=== PATIENT | male | born 1960 | race Caucasian/White ===

== ENCOUNTER 2021-12-19 17:57 | Inpatient (IN) | payer MEDICARE ==
[2021-12-19] MEDS ORDERED: SODIUM CHLORIDE 0.9% 1,000 ML IV STA ×5 (18:10→23:00)
--- NOTE | 2021-12-19 18:13 | ED ---
General Adult HPI - General Stated complaint: Altered mental status Time Seen by Provider: 12/19/21 18:00 - History of Present Illness Initial comments: 61-year-old male with a history of liver transplant 19 years ago at [facility] multiple other medical issues who also has been drinking but quit 2 weeks ago who presents today with complaints of weakness he was unable to get up and ambulate for last couple days due to weakness he also states he had gout which was acting up with pain in his feet. He denies any overt fevers chills or sweats he states he had increase oral intake of fluids but decreased urine output per paramedics the urine bedside and it urine all was very dark. He was also noted to be jaundiced's unclear how long this is been going on. He denies any fevers chills or sweats no nausea vomiting at this time no other complaints at this time - Related Data Home Medications Medication Instructions Recorded Confirmed Allopurinol [Zyloprim] 300 mg PO HS 12/19/21 12/19/21 Atorvastatin Calcium [Lipitor] 10 mg PO DAILY 12/19/21 12/19/21 HYDROcodone/APAP 10-325MG [[place] 1 tab PO QID 12/19/21 12/19/21 10-325] Metoprolol Tartrate [Lopressor] 100 mg PO BID 12/19/21 12/19/21 Omeprazole 40 mg PO DAILY 12/19/21 12/19/21 QUEtiapine [SEROquel] 200 mg PO HS 12/19/21 12/19/21 Tacrolimus [Prograf] 3 mg PO BID 12/19/21 12/19/21 Allergies Allergy/AdvReac Type Severity Reaction Status Date / Time No Known Allergies Allergy Verified 12/19/21 20:48 Review of Systems ROS Statement: Those systems with pertinent positive or pertinent negative responses have been documented in the HPI. ROS Other: All systems not noted in ROS Statement are negative. General Exam - General Exam Comments Initial Comments: Is a well-developed well-nourished awake alert oriented 3 male Limitations: physical limitation General appearance: alert, in no apparent distress Head exam: Present: atraumatic, normocephalic, normal inspection Eye exam: Present: other (Conjunctival icterus) ENT exam: Present: mucous membranes dry Neck exam: Present: normal inspection, full ROM, other. Absent: tenderness, meningismus, lymphadenopathy Respiratory exam: Present: decreased breath sounds (No stridor JVD or bruits) Cardiovascular Exam: Present: regular rate, normal rhythm, normal heart sounds. Absent: systolic murmur, diastolic murmur, rubs, gallop, clicks GI/Abdominal exam: Present: soft, distended, normal bowel sounds. Absent: tenderness, guarding, rebound, rigid Extremities exam: Present: full ROM, normal capillary refill, other (Mild tenderness over the feet to palpation over the joints some bruising seen over the right medial first MTP joint). Absent: tenderness, pedal edema, joint swelling, calf tenderness Back exam: Present: normal inspection, full ROM Neurological exam: Present: alert, oriented X3, CN II-XII intact Psychiatric exam: Present: normal affect, normal mood Skin exam: Present: warm, dry, intact, other (Jaundice). Absent: rash Course Vital Signs 12/19/21 12/19/21 18:00 19:40 Temperature 97.7 F Pulse Rate 82 76 Respiratory 22 18 Rate Blood Pressure 122/72 138/73 O2 Sat by Pulse 95 98 Oximetry - Reevaluation(s) Reevaluation #1: 12/19/21 20:36 Patient reevaluation feeling somewhat better after some IV fluids. I did discuss all the findings with family he will require transfer to a higher level of care for hepatorenal failure specimen light of the liver transplant he does not want to go to [facility] in [place] is his choice. Reevaluation #2: 12/19/21 20:37 I did discuss the case with the transfer team at [facility] Dr. Simpson. Also discussed the case with the ICU fellow if the patient does not require an insulin drip and if the gap to be improved to around 12 patient can be admitted to the floor directly. COVID-19 is pending at this time. Reevaluation #3: 12/19/21 20:53 Reevaluation patient still is awake alert somewhat anxious. Discussed with the transfer team at [facility] they would like to have possible acute the patient and the ICU has not required insulin drip patient will receive a liter fluid and hemorrhage is of insulin with a redraw. It was like the anion gap to be around 12 of possible down from 17. I did discuss this with the patient I will discuss this with Dr. Casillas at her shift change EKG Findings - EKG Results: EKG: interpreted by ERMRosie, sinus rhythm (Sinus rhythm a 78. Interval 156 QRS duration 106 DT says QTC 440/473 prolonged QT interval nonspecific ST configuration) Medical Decision Making - Lab Data Result diagrams: 12/19/21 18:20 12/19/21 18:20 Lab Results 12/19/21 12/19/21 12/19/21 Range/Units 18:10 18:20 18:20 WBC 7.8 (3.8-10.6) k/uL RBC 3.29 L (4.30-5.90) m/uL Hgb 11.3 L (13.0-17.5) gm/dL Hct 34.8 L (39.0-53.0) % MCV 105.8 H (80.0-100.0) fL MCH 34.3 (25.0-35.0) pg MCHC 32.4 (31.0-37.0) g/dL RDW 14.6 (11.5-15.5) % Plt Count 209 (150-450) k/uL MPV 11.2 Neutrophils % 84 % Lymphocytes % 8 % Monocytes % 5 % Eosinophils % 1 % Basophils % 0 % Neutrophils # 6.6 (1.3-7.7) k/uL Lymphocytes # 0.7 L (1.0-4.8) k/uL Monocytes # 0.4 (0-1.0) k/uL Eosinophils # 0.1 (0-0.7) k/uL Basophils # 0.0 (0-0.2) k/uL Hypochromasia Slight Macrocytosis Moderate PT 13.0 H (9.0-12.0) sec INR 1.2 H (<1.2) APTT 27.2 (22.0-30.0) sec Sodium (137-145) mmol/L Potassium (3.5-5.1) mmol/L Chloride (98-107) mmol/L Carbon Dioxide (22-30) mmol/L Anion Gap mmol/L BUN (9-20) mg/dL Creatinine (0.66-1.25) mg/dL Est GFR (CKD-EPI)AfAm (>60 ml/min/1.73 sqM) Est GFR (CKD-EPI)NonAf (>60 ml/min/1.73 sqM) Glucose (74-99) mg/dL POC Glucose (mg/dL) >600 H (75-99) mg/dL POC Glu Laboratory Tester Alejo Rivera Plasma Lactic Acid Eriberto (0.7-2.0) mmol/L Calcium (8.4-10.2) mg/dL Magnesium (1.6-2.3) mg/dL Total Bilirubin (0.2-1.3) mg/dL AST (17-59) U/L ALT (4-49) U/L Alkaline Phosphatase (38-126) U/L Ammonia (<30) umol/L Creatine Kinase (55-170) U/L Troponin I (0.000-0.034) ng/mL Total Protein (6.3-8.2) g/dL Albumin (3.5-5.0) g/dL Amylase (30-110) U/L Lipase (23-300) U/L Acetone, Qual (Negative) Coronavirus (PCR) (Not Detectd) 12/19/21 12/19/21 12/19/21 Range/Units 18:20 18:20 18:20 WBC (3.8-10.6) k/uL RBC (4.30-5.90) m/uL Hgb (13.0-17.5) gm/dL Hct (39.0-53.0) % MCV (80.0-100.0) fL MCH (25.0-35.0) pg MCHC (31.0-37.0) g/dL RDW (11.5-15.5) % Plt Count (150-450) k/uL MPV Neutrophils % % Lymphocytes % % Monocytes % % Eosinophils % % Basophils % % Neutrophils # (1.3-7.7) k/uL Lymphocytes # (1.0-4.8) k/uL Monocytes # (0-1.0) k/uL Eosinophils # (0-0.7) k/uL Basophils # (0-0.2) k/uL Hypochromasia Macrocytosis PT (9.0-12.0) sec INR (<1.2) APTT (22.0-30.0) sec Sodium 120 L (137-145) mmol/L Potassium 4.9 (3.5-5.1) mmol/L Chloride 85 L (98-107) mmol/L Carbon Dioxide 18 L (22-30) mmol/L Anion Gap 17 mmol/L BUN 64 H (9-20) mg/dL Creatinine 3.33 H (0.66-1.25) mg/dL Est GFR (CKD-EPI)AfAm 22 (>60 ml/min/1.73 sqM) Est GFR (CKD-EPI)NonAf 19 (>60 ml/min/1.73 sqM) Glucose 693 H* (74-99) mg/dL POC Glucose (mg/dL) (75-99) mg/dL POC Glu Laboratory Tester ID Plasma Lactic Acid Eriberto 1.4 (0.7-2.0) mmol/L Calcium 9.2 (8.4-10.2) mg/dL Magnesium 2.2 (1.6-2.3) mg/dL Total Bilirubin 20.4 H* (0.2-1.3) mg/dL AST 304 H (17-59) U/L ALT 176 H (4-49) U/L Alkaline Phosphatase 1704 H (38-126) U/L Ammonia 12 (<30) umol/L Creatine Kinase 86 (55-170) U/L Troponin I <0.012 (0.000-0.034) ng/mL Total Protein 6.9 (6.3-8.2) g/dL Albumin 3.5 (3.5-5.0) g/dL Amylase 163 H (30-110) U/L Lipase 2485 H (23-300) U/L Acetone, Qual Negative (Negative) Coronavirus (PCR) (Not Detectd) 12/19/21 12/19/21 Range/Units 20:04 20:29 WBC (3.8-10.6) k/uL RBC (4.30-5.90) m/uL Hgb (13.0-17.5) gm/dL Hct (39.0-53.0) % MCV (80.0-100.0) fL MCH (25.0-35.0) pg MCHC (31.0-37.0) g/dL RDW (11.5-15.5) % Plt Count (150-450) k/uL MPV Neutrophils % % Lymphocytes % % Monocytes % % Eosinophils % % Basophils % % Neutrophils # (1.3-7.7) k/uL Lymphocytes # (1.0-4.8) k/uL Monocytes # (0-1.0) k/uL Eosinophils # (0-0.7) k/uL Basophils # (0-0.2) k/uL Hypochromasia Macrocytosis PT (9.0-12.0) sec INR (<1.2) APTT (22.0-30.0) sec Sodium (137-145) mmol/L Potassium (3.5-5.1) mmol/L Chloride (98-107) mmol/L Carbon Dioxide (22-30) mmol/L Anion Gap mmol/L BUN (9-20) mg/dL Creatinine (0.66-1.25) mg/dL Est GFR (CKD-EPI)AfAm (>60 ml/min/1.73 sqM) Est GFR (CKD-EPI)NonAf (>60 ml/min/1.73 sqM) Glucose (74-99) mg/dL POC Glucose (mg/dL) 570 H (75-99) mg/dL POC Glu Laboratory Tester ID [place] Yennifer Plasma Lactic Acid Eriberto (0.7-2.0) mmol/L Calcium (8.4-10.2) mg/dL Magnesium (1.6-2.3) mg/dL Total Bilirubin (0.2-1.3) mg/dL AST (17-59) U/L ALT (4-49) U/L Alkaline Phosphatase (38-126) U/L Ammonia (<30) umol/L Creatine Kinase (55-170) U/L Troponin I (0.000-0.034) ng/mL Total Protein (6.3-8.2) g/dL Albumin (3.5-5.0) g/dL Amylase (30-110) U/L Lipase (23-300) U/L Acetone, Qual (Negative) Coronavirus (PCR) Not Detected (Not Detectd) Critical Care Time Critical Care Time: Yes Total Critical Care Time: 45 Critical Care Time: Critical care time including initial presentation with history physical labs x- rays discussed with the patient and EMS upon arrival also reevaluation the patient responsive therapy discussion with physicians at [facility] as well as a transfer team. Review of old charting was available. Documentation of the above. Disposition Clinical Impression: Acute hepatic failure, Acute kidney injury, Jaundice, Pancreatitis, acute, Uncontrolled diabetes mellitus, Dehydration, Failure to thrive in adult, Weakness Disposition: OTHER INSTITUTION NOT DEFINED Referrals: Wali Hart MD [Primary Care Provider] - 1-2 days
[2021-12-19 18:17] LABS: Glucose,Whole Blood >600 mg/dL (75-99)
[2021-12-19 18:39] LABS: Basophils % (A) 0 %; Eosinophils # (A) 0.1 k/uL (0-0.7); Eosinophils % (A) 1 %; HCT 34.8 % (39.0-53.0); HGB 11.3 gm/dL (13.0-17.5); Hypochromasia Slight; Lymphocytes # (A) 0.7 k/uL (1.0-4.8); Lymphocytes % (A) 8 %; MCH 34.3 pg (25.0-35.0); MCHC 32.4 g/dL (31.0-37.0); MCV 105.8 fL (80.0-100.0); Macrocytosis Moderate; Mean Platelet Volume 11.2; Monocytes # (A) 0.4 k/uL (0-1.0); Monocytes % (A) 5 %; Neutrophils # (A) 6.6 k/uL (1.3-7.7); Neutrophils % (A) 84 %; Platelet Count 209 k/uL (150-450); RBC 3.29 m/uL (4.30-5.90); RDW 14.6 % (11.5-15.5); WBC 7.8 k/uL (3.8-10.6)
[2021-12-19 18:42] LABS: Lactic Acid, Venous 1.4 mmol/L (0.7-2.0)
[2021-12-19 18:43] LABS: ALT 176 U/L (4-49); AST 304 U/L (17-59); African American GFR (CKD) 22 (>60 ml/min/1.73 sqM); Albumin 3.5 g/dL (3.5-5.0); Amylase 163 U/L (30-110); Anion Gap 17 mmol/L; Blood Urea Nitrogen 64 mg/dL (9-20); Calcium 9.2 mg/dL (8.4-10.2); Carbon Dioxide 18 mmol/L (22-30); Chloride 85 mmol/L (98-107); Creatine Kinase 86 U/L (55-170); Magnesium 2.2 mg/dL (1.6-2.3); Non-African American GFR(CKD) 19 (>60 ml/min/1.73 sqM); Potassium 4.9 mmol/L (3.5-5.1); Sodium 120 mmol/L (137-145); Total Protein 6.9 g/dL (6.3-8.2)
[2021-12-19] MEDS ORDERED: INSULIN REGULAR 100 UNIT/ML VIAL (IV) IV ONE ×3 (18:55→23:00)
[2021-12-19 19:03] LABS: Total Bilirubin 20.4 mg/dL (0.2-1.3)
[2021-12-19 19:04] LABS: Glucose 693 mg/dL (74-99)
[2021-12-19 19:05] LABS: Alkaline Phosphatase 1704 U/L (38-126); Lipase 2485 U/L (23-300)
[2021-12-19 19:09] LABS: INR 1.2 (<1.2); Partial Thromboplastin Time 27.2 sec (22.0-30.0)
[2021-12-19] MEDS ORDERED: INSULIN REGULAR 100 UNIT/ML VIAL (IV) IV STA (19:22)
--- NOTE | 2021-12-19 19:45 | XR ---
EXAMINATION TYPE: XR KUB DATE OF EXAM: 12/19/2021 COMPARISON: NONE HISTORY: Weakness. Abdominal pain. Jaundice. TECHNIQUE: 3 views supine FINDINGS: There is no sign of intestinal obstruction or pneumoperitoneum. Fecal pattern is normal. Th ere is no evidence of a mass. There are no pathologic calcifications over the kidneys. There is eleva jennifer right diaphragm. IMPRESSION: Nonacute abdomen.
--- NOTE | 2021-12-19 19:47 | XR ---
EXAMINATION TYPE: XR chest 2V DATE OF EXAM: 12/19/2021 COMPARISON: 05/12/2021 HISTORY: Abdominal pain. Chest pain TECHNIQUE: 2 views FINDINGS: There is some blunting of the right costophrenic angle. There is elevated right diaphragm. Left lung is clear. There is no heart failure. Bony thorax is intact IMPRESSION: There is some pleural reaction and atelectasis right lung base which appears slightly wor se than last exam. Normal heart.
[2021-12-19 20:31] LABS: Glucose,Whole Blood 570 mg/dL (75-99)
[2021-12-19] MEDS ORDERED: LORazepam 2 MG/ML INJ IV STA (20:52)
[2021-12-19 22:26] LABS: Albumin 2.7 g/dL (3.5-5.0); Calcium 8.3 mg/dL (8.4-10.2); Potassium 3.6 mmol/L (3.5-5.1); Total Protein 5.8 g/dL (6.3-8.2)
[2021-12-19 22:42] LABS: Total Bilirubin 17.4 mg/dL (0.2-1.3)
[2021-12-20 03:21] LABS: Appearance,Urine Cloudy (Clear); Bacteria,Urine Rare /hpf; Bilirubin,Urine 2+ (Negative); Blood,Urine Negative (Negative); Color,Urine Dark Yellow; Glucose,Urine (UA) 4+ (Negative); Ketones,Urine Trace (Negative); Leukocyte Esterase,Urine Negative (Negative); Mucus,Urine Rare /hpf; Nitrite,Urine Negative (Negative); Protein,Urine Trace (Negative); Specific Gravity,Urine 1.016 (1.001-1.035); Squamous Epithelial Cell,Urine 1 /hpf (0-4); Urobilinogen,Urine <2.0 mg/dL (<2.0); WBC,Urine 2 /hpf (0-5)
[2021-12-20 05:30] LABS: Basophils % (A) 0 %; Eosinophils # (A) 0.1 k/uL (0-0.7); Eosinophils % (A) 1 %; HCT 32.4 % (39.0-53.0); HGB 10.6 gm/dL (13.0-17.5); Lymphocytes # (A) 0.7 k/uL (1.0-4.8); Lymphocytes % (A) 11 %; MCH 33.9 pg (25.0-35.0); MCHC 32.7 g/dL (31.0-37.0); MCV 103.6 fL (80.0-100.0); Macrocytosis Slight; Mean Platelet Volume 10.8; Monocytes # (A) 0.3 k/uL (0-1.0); Monocytes % (A) 4 %; Neutrophils # (A) 5.3 k/uL (1.3-7.7); Neutrophils % (A) 82 %; Platelet Count 188 k/uL (150-450); RBC 3.12 m/uL (4.30-5.90); RDW 14.7 % (11.5-15.5); WBC 6.4 k/uL (3.8-10.6)
[2021-12-20 05:42] LABS: Albumin 2.7 g/dL (3.5-5.0); Calcium 8.2 mg/dL (8.4-10.2); Potassium 4.4 mmol/L (3.5-5.1); Total Protein 5.8 g/dL (6.3-8.2)
[2021-12-20 06:09] LABS: Total Bilirubin 17.7 mg/dL (0.2-1.3)
[2021-12-20] MEDS ORDERED: SODIUM CHLORIDE 0.9% 1,000 ML IV STA (06:12)
[2021-12-20] MEDS ORDERED: INSULIN REGULAR 100 UNIT/ML VIAL (IV) IV ONE (06:12)
[2021-12-20 09:21] LABS: Hepatitis A Antibody IgM Nonreactive (Nonreactive); Hepatitis B Core IgM Nonreactive (Nonreactive); Hepatitis B Surface Antigen Nonreactive (Nonreactive); Hepatitis C IgG Antibody Reactive (Nonreactive)
[2021-12-20 09:23] LABS: Albumin 1.8 g/dL (3.5-5.0); Potassium 3.2 mmol/L (3.5-5.1); Total Bilirubin 12.3 mg/dL (0.2-1.3); Total Protein 4.2 g/dL (6.3-8.2)
[2021-12-20 09:33] LABS: Calcium 5.6 mg/dL (8.4-10.2)
[2021-12-20] MEDS ORDERED: CALCIUM GLUCONATE 1 GM in SODIUM CHLORIDE 0.9% 100 ML IVPB ONE (09:35)
[2021-12-20] MEDS ORDERED: NALOXONE 0.4 MG/ML 1 ML VIAL IV PRN (11:23)
--- NOTE | 2021-12-20 11:27 | ED ---
Medical Decision Making - Medical Decision Making 61-year-old male with attempted transfer yesterday. Nursing staff has been in contact with [facility] through the night and they have been trying to manage patient over the phone. Some labs have improved however calcium is drop. Calcium was added. Patient was reevaluated. Case was discussed with Dr. ruiz who will admit as [facility] still does not have a bed for this patient. - Lab Data Result diagrams: 12/20/21 05:20 12/20/21 08:48 Lab Results 12/19/21 12/19/21 12/19/21 Range/Units 18:10 18:20 18:20 WBC 7.8 (3.8-10.6) k/uL RBC 3.29 L (4.30-5.90) m/uL Hgb 11.3 L (13.0-17.5) gm/dL Hct 34.8 L (39.0-53.0) % MCV 105.8 H (80.0-100.0) fL MCH 34.3 (25.0-35.0) pg MCHC 32.4 (31.0-37.0) g/dL RDW 14.6 (11.5-15.5) % Plt Count 209 (150-450) k/uL MPV 11.2 Neutrophils % 84 % Lymphocytes % 8 % Monocytes % 5 % Eosinophils % 1 % Basophils % 0 % Neutrophils # 6.6 (1.3-7.7) k/uL Lymphocytes # 0.7 L (1.0-4.8) k/uL Monocytes # 0.4 (0-1.0) k/uL Eosinophils # 0.1 (0-0.7) k/uL Basophils # 0.0 (0-0.2) k/uL Hypochromasia Slight Macrocytosis Moderate PT 13.0 H (9.0-12.0) sec INR 1.2 H (<1.2) APTT 27.2 (22.0-30.0) sec Sodium (137-145) mmol/L Potassium (3.5-5.1) mmol/L Chloride (98-107) mmol/L Carbon Dioxide (22-30) mmol/L Anion Gap mmol/L BUN (9-20) mg/dL Creatinine (0.66-1.25) mg/dL Est GFR (CKD-EPI)AfAm (>60 ml/min/1.73 sqM) Est GFR (CKD-EPI)NonAf (>60 ml/min/1.73 sqM) Glucose (74-99) mg/dL POC Glucose (mg/dL) >600 H (75-99) mg/dL POC Glu Parts Remover ID Alejo Crowder Estimated Ave Glu mg/dL Hemoglobin A1c (0.0-6.0) % Plasma Lactic Acid Eriberto (0.7-2.0) mmol/L Calcium (8.4-10.2) mg/dL Magnesium (1.6-2.3) mg/dL Total Bilirubin (0.2-1.3) mg/dL AST (17-59) U/L ALT (4-49) U/L Alkaline Phosphatase (38-126) U/L Ammonia (<30) umol/L Creatine Kinase (55-170) U/L Troponin I (0.000-0.034) ng/mL Total Protein (6.3-8.2) g/dL Albumin (3.5-5.0) g/dL Amylase (30-110) U/L Lipase (23-300) U/L Urine Color Urine Appearance (Clear) Urine pH (5.0-8.0) Ur Specific [place] (1.001-1.035) Urine Protein (Negative) Urine Glucose (UA) (Negative) Urine Ketones (Negative) Urine Blood (Negative) Urine Nitrite (Negative) Urine Bilirubin (Negative) Urine Urobilinogen (<2.0) mg/dL Ur Leukocyte Esterase (Negative) Urine WBC (0-5) /hpf Ur Squamous Epith Cells (0-4) /hpf Urine Bacteria (None) /hpf Urine Mucus (None) /hpf Acetone, Qual (Negative) Coronavirus (PCR) (Not Detectd) Hepatitis A IgM Ab (Nonreactive) Hep Bs Antigen (Nonreactive) Hep B Core IgM Ab (Nonreactive) Hep C IgG Ab (Nonreactive) 12/19/21 12/19/21 12/19/21 Range/Units 18:20 18:20 18:20 WBC (3.8-10.6) k/uL RBC (4.30-5.90) m/uL Hgb (13.0-17.5) gm/dL Hct (39.0-53.0) % MCV (80.0-100.0) fL MCH (25.0-35.0) pg MCHC (31.0-37.0) g/dL RDW (11.5-15.5) % Plt Count (150-450) k/uL MPV Neutrophils % % Lymphocytes % % Monocytes % % Eosinophils % % Basophils % % Neutrophils # (1.3-7.7) k/uL Lymphocytes # (1.0-4.8) k/uL Monocytes # (0-1.0) k/uL Eosinophils # (0-0.7) k/uL Basophils # (0-0.2) k/uL Hypochromasia Macrocytosis PT (9.0-12.0) sec INR (<1.2) APTT (22.0-30.0) sec Sodium 120 L (137-145) mmol/L Potassium 4.9 (3.5-5.1) mmol/L Chloride 85 L (98-107) mmol/L Carbon Dioxide 18 L (22-30) mmol/L Anion Gap 17 mmol/L BUN 64 H (9-20) mg/dL Creatinine 3.33 H (0.66-1.25) mg/dL Est GFR (CKD-EPI)AfAm 22 (>60 ml/min/1.73 sqM) Est GFR (CKD-EPI)NonAf 19 (>60 ml/min/1.73 sqM) Glucose 693 H* (74-99) mg/dL POC Glucose (mg/dL) (75-99) mg/dL POC Glu Parts Remover ID Estimated Ave Glu mg/dL Hemoglobin A1c (0.0-6.0) % Plasma Lactic Acid Eriberto 1.4 (0.7-2.0) mmol/L Calcium 9.2 (8.4-10.2) mg/dL Magnesium 2.2 (1.6-2.3) mg/dL Total Bilirubin 20.4 H* (0.2-1.3) mg/dL AST 304 H (17-59) U/L ALT 176 H (4-49) U/L Alkaline Phosphatase 1704 H (38-126) U/L Ammonia 12 (<30) umol/L Creatine Kinase 86 (55-170) U/L Troponin I <0.012 (0.000-0.034) ng/mL Total Protein 6.9 (6.3-8.2) g/dL Albumin 3.5 (3.5-5.0) g/dL Amylase 163 H (30-110) U/L Lipase 2485 H (23-300) U/L Urine Color Urine Appearance (Clear) Urine pH (5.0-8.0) Ur Specific [place] (1.001-1.035) Urine Protein (Negative) Urine Glucose (UA) (Negative) Urine Ketones (Negative) Urine Blood (Negative) Urine Nitrite (Negative) Urine Bilirubin (Negative) Urine Urobilinogen (<2.0) mg/dL Ur Leukocyte Esterase (Negative) Urine WBC (0-5) /hpf Ur Squamous Epith Cells (0-4) /hpf Urine Bacteria (None) /hpf Urine Mucus (None) /hpf Acetone, Qual Negative (Negative) Coronavirus (PCR) (Not Detectd) Hepatitis A IgM Ab (Nonreactive) Hep Bs Antigen (Nonreactive) Hep B Core IgM Ab (Nonreactive) Hep C IgG Ab (Nonreactive) 12/19/21 12/19/21 12/19/21 Range/Units 19:39 20:04 20:29 WBC (3.8-10.6) k/uL RBC (4.30-5.90) m/uL Hgb (13.0-17.5) gm/dL Hct (39.0-53.0) % MCV (80.0-100.0) fL MCH (25.0-35.0) pg MCHC (31.0-37.0) g/dL RDW (11.5-15.5) % Plt Count (150-450) k/uL MPV Neutrophils % % Lymphocytes % % Monocytes % % Eosinophils % % Basophils % % Neutrophils # (1.3-7.7) k/uL Lymphocytes # (1.0-4.8) k/uL Monocytes # (0-1.0) k/uL Eosinophils # (0-0.7) k/uL Basophils # (0-0.2) k/uL Hypochromasia Macrocytosis PT (9.0-12.0) sec INR (<1.2) APTT (22.0-30.0) sec Sodium (137-145) mmol/L Potassium (3.5-5.1) mmol/L Chloride (98-107) mmol/L Carbon Dioxide (22-30) mmol/L Anion Gap mmol/L BUN (9-20) mg/dL Creatinine (0.66-1.25) mg/dL Est GFR (CKD-EPI)AfAm (>60 ml/min/1.73 sqM) Est GFR (CKD-EPI)NonAf (>60 ml/min/1.73 sqM) Glucose (74-99) mg/dL POC Glucose (mg/dL) 570 H (75-99) mg/dL POC Glu Parts Remover ID Yennifer Carrero Estimated Ave Glu mg/dL 231 Hemoglobin A1c 9.7 H (0.0-6.0) % Plasma Lactic Acid Eriberto (0.7-2.0) mmol/L Calcium (8.4-10.2) mg/dL Magnesium (1.6-2.3) mg/dL Total Bilirubin (0.2-1.3) mg/dL AST (17-59) U/L ALT (4-49) U/L Alkaline Phosphatase (38-126) U/L Ammonia (<30) umol/L Creatine Kinase (55-170) U/L Troponin I (0.000-0.034) ng/mL Total Protein (6.3-8.2) g/dL Albumin (3.5-5.0) g/dL Amylase (30-110) U/L Lipase (23-300) U/L Urine Color Urine Appearance (Clear) Urine pH (5.0-8.0) Ur Specific [place] (1.001-1.035) Urine Protein (Negative) Urine Glucose (UA) (Negative) Urine Ketones (Negative) Urine Blood (Negative) Urine Nitrite (Negative) Urine Bilirubin (Negative) Urine Urobilinogen (<2.0) mg/dL Ur Leukocyte Esterase (Negative) Urine WBC (0-5) /hpf Ur Squamous Epith Cells (0-4) /hpf Urine Bacteria (None) /hpf Urine Mucus (None) /hpf Acetone, Qual (Negative) Coronavirus (PCR) Not Detected (Not Detectd) Hepatitis A IgM Ab (Nonreactive) Hep Bs Antigen (Nonreactive) Hep B Core IgM Ab (Nonreactive) Hep C IgG Ab (Nonreactive) 12/19/21 12/19/21 12/20/21 Range/Units 21:52 21:52 03:05 WBC (3.8-10.6) k/uL RBC (4.30-5.90) m/uL Hgb (13.0-17.5) gm/dL Hct (39.0-53.0) % MCV (80.0-100.0) fL MCH (25.0-35.0) pg MCHC (31.0-37.0) g/dL RDW (11.5-15.5) % Plt Count (150-450) k/uL MPV Neutrophils % % Lymphocytes % % Monocytes % % Eosinophils % % Basophils % % Neutrophils # (1.3-7.7) k/uL Lymphocytes # (1.0-4.8) k/uL Monocytes # (0-1.0) k/uL Eosinophils # (0-0.7) k/uL Basophils # (0-0.2) k/uL Hypochromasia Macrocytosis PT (9.0-12.0) sec INR (<1.2) APTT (22.0-30.0) sec Sodium 127 L (137-145) mmol/L Potassium 3.6 (3.5-5.1) mmol/L Chloride 96 L (98-107) mmol/L Carbon Dioxide 16 L (22-30) mmol/L Anion Gap 15 mmol/L BUN 60 H (9-20) mg/dL Creatinine 3.02 H (0.66-1.25) mg/dL Est GFR (CKD-EPI)AfAm 24 (>60 ml/min/1.73 sqM) Est GFR (CKD-EPI)NonAf 21 (>60 ml/min/1.73 sqM) Glucose 419 H (74-99) mg/dL POC Glucose (mg/dL) (75-99) mg/dL POC Glu Parts Remover ID Estimated Ave Glu mg/dL Hemoglobin A1c (0.0-6.0) % Plasma Lactic Acid Eriberto (0.7-2.0) mmol/L Calcium 8.3 L (8.4-10.2) mg/dL Magnesium (1.6-2.3) mg/dL Total Bilirubin 17.4 H* (0.2-1.3) mg/dL AST 248 H (17-59) U/L ALT 132 H (4-49) U/L Alkaline Phosphatase 1362 H (38-126) U/L Ammonia (<30) umol/L Creatine Kinase (55-170) U/L Troponin I (0.000-0.034) ng/mL Total Protein 5.8 L (6.3-8.2) g/dL Albumin 2.7 L (3.5-5.0) g/dL Amylase (30-110) U/L Lipase (23-300) U/L Urine Color Dark Yellow Urine Appearance Cloudy (Clear) Urine pH 5.0 (5.0-8.0) Ur Specific [place] 1.016 (1.001-1.035) Urine Protein Trace H (Negative) Urine Glucose (UA) 4+ H (Negative) Urine Ketones Trace H (Negative) Urine Blood Negative (Negative) Urine Nitrite Negative (Negative) Urine Bilirubin 2+ H (Negative) Urine Urobilinogen <2.0 (<2.0) mg/dL Ur Leukocyte Esterase Negative (Negative) Urine WBC 2 (0-5) /hpf Ur Squamous Epith Cells 1 (0-4) /hpf Urine Bacteria Rare H (None) /hpf Urine Mucus Rare H (None) /hpf Acetone, Qual (Negative) Coronavirus (PCR) (Not Detectd) Hepatitis A IgM Ab Nonreactive (Nonreactive) Hep Bs Antigen Nonreactive (Nonreactive) Hep B Core IgM Ab Nonreactive (Nonreactive) Hep C IgG Ab Reactive A (Nonreactive) 12/20/21 12/20/21 12/20/21 Range/Units 05:20 05:20 08:48 WBC 6.4 (3.8-10.6) k/uL RBC 3.12 L (4.30-5.90) m/uL Hgb 10.6 L (13.0-17.5) gm/dL Hct 32.4 L (39.0-53.0) % MCV 103.6 H (80.0-100.0) fL MCH 33.9 (25.0-35.0) pg MCHC 32.7 (31.0-37.0) g/dL RDW 14.7 (11.5-15.5) % Plt Count 188 (150-450) k/uL MPV 10.8 Neutrophils % 82 % Lymphocytes % 11 % Monocytes % 4 % Eosinophils % 1 % Basophils % 0 % Neutrophils # 5.3 (1.3-7.7) k/uL Lymphocytes # 0.7 L (1.0-4.8) k/uL Monocytes # 0.3 (0-1.0) k/uL Eosinophils # 0.1 (0-0.7) k/uL Basophils # 0.0 (0-0.2) k/uL Hypochromasia Macrocytosis Slight PT (9.0-12.0) sec INR (<1.2) APTT (22.0-30.0) sec Sodium 129 L 134 L (137-145) mmol/L Potassium 4.4 3.2 L (3.5-5.1) mmol/L Chloride 97 L 114 H (98-107) mmol/L Carbon Dioxide 17 L 12 L (22-30) mmol/L Anion Gap 15 8 mmol/L BUN 57 H 40 H (9-20) mg/dL Creatinine 2.79 H 1.73 H (0.66-1.25) mg/dL Est GFR (CKD-EPI)AfAm 27 48 (>60 ml/min/1.73 sqM) Est GFR (CKD-EPI)NonAf 23 41 (>60 ml/min/1.73 sqM) Glucose 379 H 284 H (74-99) mg/dL POC Glucose (mg/dL) (75-99) mg/dL POC Glu Parts Remover ID Estimated Ave Glu mg/dL Hemoglobin A1c (0.0-6.0) % Plasma Lactic Acid Eriberto (0.7-2.0) mmol/L Calcium 8.2 L 5.6 L* (8.4-10.2) mg/dL Magnesium (1.6-2.3) mg/dL Total Bilirubin 17.7 H* 12.3 H (0.2-1.3) mg/dL AST 252 H 159 H (17-59) U/L ALT 142 H 96 H (4-49) U/L Alkaline Phosphatase 1310 H 849 H (38-126) U/L Ammonia (<30) umol/L Creatine Kinase (55-170) U/L Troponin I (0.000-0.034) ng/mL Total Protein 5.8 L 4.2 L (6.3-8.2) g/dL Albumin 2.7 L 1.8 L (3.5-5.0) g/dL Amylase (30-110) U/L Lipase (23-300) U/L Urine Color Urine Appearance (Clear) Urine pH (5.0-8.0) Ur Specific [place] (1.001-1.035) Urine Protein (Negative) Urine Glucose (UA) (Negative) Urine Ketones (Negative) Urine Blood (Negative) Urine Nitrite (Negative) Urine Bilirubin (Negative) Urine Urobilinogen (<2.0) mg/dL Ur Leukocyte Esterase (Negative) Urine WBC (0-5) /hpf Ur Squamous Epith Cells (0-4) /hpf Urine Bacteria (None) /hpf Urine Mucus (None) /hpf Acetone, Qual (Negative) Coronavirus (PCR) (Not Detectd) Hepatitis A IgM Ab (Nonreactive) Hep Bs Antigen (Nonreactive) Hep B Core IgM Ab (Nonreactive) Hep C IgG Ab (Nonreactive) 12/20/21 Range/Units 08:48 WBC (3.8-10.6) k/uL RBC (4.30-5.90) m/uL Hgb (13.0-17.5) gm/dL Hct (39.0-53.0) % MCV (80.0-100.0) fL MCH (25.0-35.0) pg MCHC (31.0-37.0) g/dL RDW (11.5-15.5) % Plt Count (150-450) k/uL MPV Neutrophils % % Lymphocytes % % Monocytes % % Eosinophils % % Basophils % % Neutrophils # (1.3-7.7) k/uL Lymphocytes # (1.0-4.8) k/uL Monocytes # (0-1.0) k/uL Eosinophils # (0-0.7) k/uL Basophils # (0-0.2) k/uL Hypochromasia Macrocytosis PT (9.0-12.0) sec INR (<1.2) APTT (22.0-30.0) sec Sodium (137-145) mmol/L Potassium (3.5-5.1) mmol/L Chloride (98-107) mmol/L Carbon Dioxide (22-30) mmol/L Anion Gap mmol/L BUN (9-20) mg/dL Creatinine (0.66-1.25) mg/dL Est GFR (CKD-EPI)AfAm (>60 ml/min/1.73 sqM) Est GFR (CKD-EPI)NonAf (>60 ml/min/1.73 sqM) Glucose (74-99) mg/dL POC Glucose (mg/dL) (75-99) mg/dL POC Glu Parts Remover ID Estimated Ave Glu mg/dL Hemoglobin A1c (0.0-6.0) % Plasma Lactic Acid [place] (0.7-2.0) mmol/L Calcium (8.4-10.2) mg/dL Magnesium (1.6-2.3) mg/dL Total Bilirubin (0.2-1.3) mg/dL AST (17-59) U/L ALT (4-49) U/L Alkaline Phosphatase (38-126) U/L Ammonia 16 (<30) umol/L Creatine Kinase (55-170) U/L Troponin I (0.000-0.034) ng/mL Total Protein (6.3-8.2) g/dL Albumin (3.5-5.0) g/dL Amylase (30-110) U/L Lipase (23-300) U/L Urine Color Urine Appearance (Clear) Urine pH (5.0-8.0) Ur Specific [place] (1.001-1.035) Urine Protein (Negative) Urine Glucose (UA) (Negative) Urine Ketones (Negative) Urine Blood (Negative) Urine Nitrite (Negative) Urine Bilirubin (Negative) Urine Urobilinogen (<2.0) mg/dL Ur Leukocyte Esterase (Negative) Urine WBC (0-5) /hpf Ur Squamous Epith Cells (0-4) /hpf Urine Bacteria (None) /hpf Urine Mucus (None) /hpf Acetone, Qual (Negative) Coronavirus (PCR) (Not Detectd) Hepatitis A IgM Ab (Nonreactive) Hep Bs Antigen (Nonreactive) Hep B Core IgM Ab (Nonreactive) Hep C IgG Ab (Nonreactive) Disposition Clinical Impression: Acute hepatic failure, Acute kidney injury, Jaundice, Pancreatitis, acute, Uncontrolled diabetes mellitus, Dehydration, Failure to thrive in adult, Weakness Disposition: ADMITTED IP TO THIS HOSP Is patient prescribed a controlled substance at d/c from ED?: No Referrals: Wali Hart MD [Primary Care Provider] - 1-2 days
[2021-12-20 12:07] LABS: Ionized Calcium 5.3 mg/dL (4.5-5.3)
[2021-12-20 12:16] LABS: Albumin 2.8 g/dL (3.5-5.0); Magnesium 1.9 mg/dL (1.6-2.3); Potassium 4.3 mmol/L (3.5-5.1); Total Protein 6.1 g/dL (6.3-8.2)
[2021-12-20 12:33] LABS: Total Bilirubin 17.6 mg/dL (0.2-1.3)
[2021-12-20] MEDS ORDERED: SODIUM CHLORIDE 0.9% 1,000 ML IV SCH ×2 (12:45→13:00)
--- NOTE | 2021-12-20 13:27 | P.HPIM ---
History of Present Illness This is a pleasant 61 years old male with past medical history of diabetes mellitus, liver transplant in 2002 on tacrolimus, history of alcohol abuse. Patient presents to the emergency room on 12/19 for complaints of weakness. Patient states that is been being a lot but likely noticed that his urine gradually is getting less and less, his urine was dark and he was getting. Some periods of confusion so he decided to come to the hospital. Currently he is fully awake and oriented. Patient states that he has history of liver tra nsplant in 2002, he is on a Prograf which is been managed by his PCP Dr. Hart, his transplant doctor moved to [place]. He says that he has history of focal abuse and his back to drinking alcohol 1-1.5 pint per day until 3 weeks ago when he stopped drinking. No smoking or illicit drugs. Also he did not know he has diabetes which is a new for him. Patient states she has low appetite but no chest pain or coughing. He has little shortness of breath, but he barely can walk. Patient states that he has bilateral leg weakness for the last 5-6 months which got really bad over the last 3 months, he admits some numbness in his right foot but he denies headache or dizziness. He has very mild weakness in the rest of his body. He denies back pain. He has some very mild/minimal abdominal pain, mainly below the umbilicus. His abdomen looks distended to some degree. He denies dysuria. No diarrhea or vomiting. He has a big star and the RUQ from his previous liver transplant patient also complains from bilateral knee pain, I tried to do passive examination of his legs but he declined because of his knee pain. No swelling or deformity or erythema of his knees Patient is hemodynamically stable and his been afebrile. Labs reviewed, his WBCs 7.8 and 6.4, hemoglobin 11.3 and 10.6, platelet is normal. INR is 1.2. Sodium on admission was 120, this morning improved to 134, back to 129 in the af ternoon. Creatinine was elevated on admission 3.3, went down to 1.7 this morning and the afternoon it was up against 2.5. His sodium on admission was 693, went down to 284 this morning and the 362 in the afternoon. Hemoglobin A1c is elevated at 9.7 percent. Patient was getting normal saline 75 mm/h which was stopped this morning, were going to resume it at 50 mL per hour Also tacrolimus was held on admission Calcium was low 5.6 and received 1 treatment, improved to 9.0. Bilirubin is elevated 17.6, liver enzymes elevated 304, this afternoon was 255, ALT was 176 on admission, currently 144. Ammonia is within the reference range 16. Troponin is negative less than 0.012. Lipase elevated to 2485 on admission went to higher 3211 today. Chest x-ray: There is some pleural reaction and atelectasis right lung base which appears slightly worse than last exam. Normal heart Abdominal x-ray KUB: Nonacute abdomen EKG showing normal sinus rhythm at [address]-T changes and QTC 473. An emergency room he received several doses of insulin, lorazepam and normal saline as well as Protonix Review of Systems CONSTITUTIONAL: No fever, no malaise HEENT: No recent visual problems or hearing problems. Denied any sore throat. CARDIOVASCULAR: No orthopnea, PND, no palpitations, no syncope. PULMONARY: No shortness of breath, no cough, no hemoptysis. GASTROINTESTINAL: No diarrhea, no nausea, no vomiting. Normoactive bowel sounds. NEUROLOGICAL: No headaches, no dizziness HEMATOLOGICAL: Denies any bleeding or petechiae. GENITOURINARY: Denies any burning micturition, or urgency. MUSCULOSKELETAL/RHEUMATOLOGICAL: Denies any joint pain, swelling, or any muscle pain. ENDOCRINE: Denies any polyuria or polydipsia currently Past Medical History Past Medical History: Diabetes Mellitus History of Any Multi-Drug Resistant Organisms: None Reported Additional Past Surgical History / Comment(s): liver transplant in 2002 Past Psychological History: No Psychological Hx Reported Smoking Status: Former smoker Past Alcohol Use History: Daily Past Drug Use History: None Reported Medications and Allergies Home Medications Medication Instructions Recorded Confirmed Type Allopurinol [Zyloprim] 300 mg PO HS 12/19/21 12/19/21 History Atorvastatin Calcium [Lipitor] 10 mg PO DAILY 12/19/21 12/19/21 History HYDROcodone/APAP 10-325MG [[place] 1 tab PO QID 12/19/21 12/19/21 History 10-325] Metoprolol Tartrate [Lopressor] 100 mg PO BID 12/19/21 12/19/21 History Omeprazole 40 mg PO DAILY 12/19/21 12/19/21 History QUEtiapine [SEROquel] 200 mg PO HS 12/19/21 12/19/21 History Tacrolimus [Prograf] 3 mg PO BID 12/19/21 12/19/21 History Allergies Allergy/AdvReac Type Severity Reaction Status Date / Time No Known Allergies Allergy Verified 12/19/21 20:48 Physical Exam Vitals: Vital Signs Temp Pulse Resp BP Pulse Ox 12/20/21 10:22 77 18 137/87 95 12/20/21 07:47 82 18 148/69 96 12/20/21 06:15 82 18 141/70 96 12/20/21 03:50 78 18 116/82 96 12/20/21 01:25 77 18 107/61 96 12/20/21 00:05 76 18 101/79 97 12/19/21 23:12 78 18 97/69 96 12/19/21 22:30 76 18 95/59 96 12/19/21 21:33 97.9 F 76 18 114/72 97 12/19/21 19:40 76 18 138/73 98 12/19/21 18:00 97.7 F 82 22 122/72 95 Intake and Output 12/19/21 12/20/21 12/20/21 22:59 06:59 14:59 Other: Weight 136.078 kg GENERAL: The patient is alert and oriented x3, not in any acute distress. Well developed, well nourished. -HEENT: Pupils are round and equally reacting to light. EOMI. No scleral icterus. No conjunctival pallor. Normocephalic, atraumatic. No pharyngeal erythema. No thyromegaly. Jaundiced CARDIOVASCULAR: S1 and S2 present. No murmurs, rubs, or gallops. PULMONARY: Chest is clear to auscultation, no wheezing or crackles. -ABDOMEN: Soft, very minimal tenderness below the umbilicus, distended, normoactive bowel sounds. No palpable organomegaly. MUSCULOSKELETAL: No joint swelling or deformity. EXTREMITIES: No cyanosis, clubbing, or pedal edema. -NEUROLOGICAL: Gross neurological examination cranial nerves are grossly intact. Bilateral leg weakness . Meningeal signs are absent SKIN: No rashes. No petechiae Results CBC & Chem 7: 12/20/21 05:20 12/20/21 11:45 Labs: Abnormal Lab Results - Last 24 Hours (Table) 12/19/21 12/19/21 12/19/21 Range/Units 18:10 18:20 18:20 RBC 3.29 L (4.30-5.90) m/uL Hgb 11.3 L (13.0-17.5) gm/dL Hct 34.8 L (39.0-53.0) % MCV 105.8 H (80.0-100.0) fL Lymphocytes # 0.7 L (1.0-4.8) k/uL PT 13.0 H (9.0-12.0) sec INR 1.2 H (<1.2) Sodium (137-145) mmol/L Potassium (3.5-5.1) mmol/L Chloride (98-107) mmol/L Carbon Dioxide (22-30) mmol/L BUN (9-20) mg/dL Creatinine (0.66-1.25) mg/dL Glucose (74-99) mg/dL POC Glucose (mg/dL) >600 H (75-99) mg/dL Hemoglobin A1c (0.0-6.0) % Calcium (8.4-10.2) mg/dL Total Bilirubin (0.2-1.3) mg/dL AST (17-59) U/L ALT (4-49) U/L Alkaline Phosphatase (38-126) U/L Total Protein (6.3-8.2) g/dL Albumin (3.5-5.0) g/dL Amylase (30-110) U/L Lipase (23-300) U/L Urine Protein (Negative) Urine Glucose (UA) (Negative) Urine Ketones (Negative) Urine Bilirubin (Negative) Urine Bacteria (None) /hpf Urine Mucus (None) /hpf Hep C IgG Ab (Nonreactive) 12/19/21 12/19/21 12/19/21 Range/Units 18:20 19:39 20:29 RBC (4.30-5.90) m/uL Hgb (13.0-17.5) gm/dL Hct (39.0-53.0) % MCV (80.0-100.0) fL Lymphocytes # (1.0-4.8) k/uL PT (9.0-12.0) sec INR (<1.2) Sodium 120 L (137-145) mmol/L Potassium (3.5-5.1) mmol/L Chloride 85 L (98-107) mmol/L Carbon Dioxide 18 L (22-30) mmol/L BUN 64 H (9-20) mg/dL Creatinine 3.33 H (0.66-1.25) mg/dL Glucose 693 H* (74-99) mg/dL POC Glucose (mg/dL) 570 H (75-99) mg/dL Hemoglobin A1c 9.7 H (0.0-6.0) % Calcium (8.4-10.2) mg/dL Total Bilirubin 20.4 H* (0.2-1.3) mg/dL AST 304 H (17-59) U/L ALT 176 H (4-49) U/L Alkaline Phosphatase 1704 H (38-126) U/L Total Protein (6.3-8.2) g/dL Albumin (3.5-5.0) g/dL Amylase 163 H (30-110) U/L Lipase 2485 H (23-300) U/L Urine Protein (Negative) Urine Glucose (UA) (Negative) Urine Ketones (Negative) Urine Bilirubin (Negative) Urine Bacteria (None) /hpf Urine Mucus (None) /hpf Hep C IgG Ab (Nonreactive) 12/19/21 12/19/21 12/20/21 Range/Units 21:52 21:52 03:05 RBC (4.30-5.90) m/uL Hgb (13.0-17.5) gm/dL Hct (39.0-53.0) % MCV (80.0-100.0) fL Lymphocytes # (1.0-4.8) k/uL PT (9.0-12.0) sec INR (<1.2) Sodium 127 L (137-145) mmol/L Potassium (3.5-5.1) mmol/L Chloride 96 L (98-107) mmol/L Carbon Dioxide 16 L (22-30) mmol/L BUN 60 H (9-20) mg/dL Creatinine 3.02 H (0.66-1.25) mg/dL Glucose 419 H (74-99) mg/dL POC Glucose (mg/dL) (75-99) mg/dL Hemoglobin A1c (0.0-6.0) % Calcium 8.3 L (8.4-10.2) mg/dL Total Bilirubin 17.4 H* (0.2-1.3) mg/dL AST 248 H (17-59) U/L ALT 132 H (4-49) U/L Alkaline Phosphatase 1362 H (38-126) U/L Total Protein 5.8 L (6.3-8.2) g/dL Albumin 2.7 L (3.5-5.0) g/dL Amylase (30-110) U/L Lipase (23-300) U/L Urine Protein Trace H (Negative) Urine Glucose (UA) 4+ H (Negative) Urine Ketones Trace H (Negative) Urine Bilirubin 2+ H (Negative) Urine Bacteria Rare H (None) /hpf Urine Mucus Rare H (None) /hpf Hep C IgG Ab Reactive A (Nonreactive) 12/20/21 12/20/21 12/20/21 Range/Units 05:20 05:20 08:48 RBC 3.12 L (4.30-5.90) m/uL Hgb 10.6 L (13.0-17.5) gm/dL Hct 32.4 L (39.0-53.0) % MCV 103.6 H (80.0-100.0) fL Lymphocytes # 0.7 L (1.0-4.8) k/uL PT (9.0-12.0) sec INR (<1.2) Sodium 129 L 134 L (137-145) mmol/L Potassium 3.2 L (3.5-5.1) mmol/L Chloride 97 L 114 H (98-107) mmol/L Carbon Dioxide 17 L 12 L (22-30) mmol/L BUN 57 H 40 H (9-20) mg/dL Creatinine 2.79 H 1.73 H (0.66-1.25) mg/dL Glucose 379 H 284 H (74-99) mg/dL POC Glucose (mg/dL) (75-99) mg/dL Hemoglobin A1c (0.0-6.0) % Calcium 8.2 L 5.6 L* (8.4-10.2) mg/dL Total Bilirubin 17.7 H* 12.3 H (0.2-1.3) mg/dL AST 252 H 159 H (17-59) U/L ALT 142 H 96 H (4-49) U/L Alkaline Phosphatase 1310 H 849 H (38-126) U/L Total Protein 5.8 L 4.2 L (6.3-8.2) g/dL Albumin 2.7 L 1.8 L (3.5-5.0) g/dL Amylase (30-110) U/L Lipase (23-300) U/L Urine Protein (Negative) Urine Glucose (UA) (Negative) Urine Ketones (Negative) Urine Bilirubin (Negative) Urine Bacteria (None) /hpf Urine Mucus (None) /hpf Hep C IgG Ab (Nonreactive) 12/20/21 Range/Units 11:45 RBC (4.30-5.90) m/uL Hgb (13.0-17.5) gm/dL Hct (39.0-53.0) % MCV (80.0-100.0) fL Lymphocytes # (1.0-4.8) k/uL PT (9.0-12.0) sec INR (<1.2) Sodium 129 L (137-145) mmol/L Potassium (3.5-5.1) mmol/L Chloride (98-107) mmol/L Carbon Dioxide 16 L (22-30) mmol/L BUN 54 H (9-20) mg/dL Creatinine 2.54 H (0.66-1.25) mg/dL Glucose 362 H (74-99) mg/dL POC Glucose (mg/dL) (75-99) mg/dL Hemoglobin A1c (0.0-6.0) % Calcium (8.4-10.2) mg/dL Total Bilirubin 17.6 H* (0.2-1.3) mg/dL AST 255 H (17-59) U/L ALT 144 H (4-49) U/L Alkaline Phosphatase 1355 H (38-126) U/L Total Protein 6.1 L (6.3-8.2) g/dL Albumin 2.8 L (3.5-5.0) g/dL Amylase 203 H (30-110) U/L Lipase 3211 H (23-300) U/L Urine Protein (Negative) Urine Glucose (UA) (Negative) Urine Ketones (Negative) Urine Bilirubin (Negative) Urine Bacteria (None) /hpf Urine Mucus (None) /hpf Hep C IgG Ab (Nonreactive) Assessment and Plan Assessment: Altered mental status, most likely delirium secondary to metabolic/toxic encephalopathy. Currently patient awake and alert Acute kidney injury Hyponatremia Elevated liver enzymes and bilirubin Acute pancreatitis bilateral knee pain Ongoing bilateral leg weakness for 3-6 months Bilateral knee pain Liver transplant 2002 on tacrolimus Diabetes mellitus, with hyperglycemia. new onset alcohol abuse Plan: This is a pleasant 61 years old male presents with multiple medical problems including acute kidney injury, hyponatremia, elevated liver enzymes, hyperglycemia and dehydration Resume normal saline at 50 mL/h, consult nephrology service Order liver ultrasound, and to rule out ascites. Also check renal ultrasound. Place patient on bladder scan We'll consider surgery consult based on were further workup on clinical progress. No GI coverage of his hospital this week. Patient was given to be transferred to [facility] once bed is available Restart Prograf at 0.5 mg BID , he was at 30 mg twice a day at home. Decrease the dose because of renal and kidney disease pending transport to [facility] for evaluation by transplant team Patient informed he is diabetic, but him on consistent carbohydrate and renal diet. Start Levemir 5 units and insulin sliding scale. Diet consult Labs and medication were reviewed.. Continue same treatment. Continue with symptomatic treatment. Resume home medication. Monitor lytes and vitals. DVT and GI prophylaxis. Further recommendations depends on the clinical course of the patient DVT prophylaxis: Subcutaneous heparin GI Prophylaxis: Ppi Prognosis is guarded
[2021-12-20] MEDS ORDERED: THIAMINE 100 MG TAB PO SCH (13:30)
[2021-12-20] MEDS ORDERED: INSULIN DETEMIR (LEVEMIR) 100 UNIT/ML SYR SQ SCH (13:30)
--- NOTE | 2021-12-20 14:03 | XR ---
Bilateral knees HISTORY: Knee pain 2 views of each knee submitted Patient is status post right knee arthroplasty. There is anatomic alignment. Left knee shows arthropa thy with joint space loss especially in the lateral compartment, patellofemoral joint with associated tricompartmental marginal spurring. Suprapatellar increased attenuation on the left is consistent wi th joint effusion, there is soft tissue swelling bilaterally. There is overlying artifact, an oval ca lcification present along the posterior aspect of the right leg on the lateral view shows a nonaggres sive appearance impression: Postop change right knee, osteoarthritis left knee with joint effusion, soft tissue swell ing
--- NOTE | 2021-12-20 14:32 | US ---
EXAMINATION TYPE: US abd limited kidneys/bladder DATE OF EXAM: 12/20/2021 COMPARISON: NONE CLINICAL HISTORY: h/o liver transplant, r/u ascites ,high LFT. Jaundice, h/o liver transplant in 2002 , ETOH abuse, abnormal renal labs, GB removed EXAM MEASUREMENTS: Liver Length: 18.0 cm CBD: 1.4 cm Right Kidney: 11.7 x 5.2 x 6.0 cm Left Kidney: 12.0 x 5.6 x 5.0 cm Pancreas: Obscured by bowel gas Liver: Heterogeneous, lobulated contour, upper limits of normal for size , there are dilated ducts Gallbladder: Surgically absent CBD: Dilated Right Kidney: Cortical thinning Left Kidney: Cortical thinning Bladder: wnl Bilateral Jets Seen No Please note, no ascites visualized IMPRESSION: No evident ascites. No pancreatic tissues recognizable. Correlate for cirrhosis. Dilated intra and extrahepatic biliary ducts, bilateral cortical thinning is present within the kidneys. Post op change. Limited exam.
[2021-12-20] MEDS: INSULIN ASPART (NovoLOG) 100 UNIT/ML VIAL SQ SCH ×3 (15:32→20:57)
[2021-12-20 20:22] LABS: Glucose,Whole Blood 438 mg/dL (75-99)
[2021-12-20] MEDS ORDERED: INSULIN ASPART (NovoLOG) 100 UNIT/ML VIAL SQ ONE (20:44)
[2021-12-20] MEDS ORDERED: TACROLIMUS 0.5 MG CAP PO SCH (21:00)
[2021-12-20] MEDS ORDERED: TACROLIMUS 1 MG CAP PO SCH (21:00)
[2021-12-20] MEDS ORDERED: HEPARIN SODIUM,PORCINE/PF 5,000 UNIT/0.5 ML SYRINGE SQ SCH (21:00)
[2021-12-20 21:30] VITALS: RESP 18
--- NOTE | 2021-12-20 22:08 | P.CNNES ---
History of Present Illness Consult date: 12/20/21 Requesting physician: Bhanu Eddy Reason for Consult: b/l leg weakness and numbness History of Present Illness: Patient is a 61-year-old male, with history of liver transplant in June 2003, also has history of alcoholism, came to the hospital yesterday at 5:57 PM by ambulance for "issues with the body, flickering, dropping stuff with his hands". Patient states that he started long time ago, when he started drinking at age 24. However it has gotten much worse in the last 2-3 days. He has noticed that if he is holding something in his hand, he would drop the bowl, or if he is standing, his legs/knees will give out and he would fall. Patient says that he even fell in the hospital and the doctor caught him. He goes down real hard. As per EMS flow sheet when they arrived, found patient sitting on the couch. Patient mentioned that he has history of "passing out". When he stands since yesterday afternoon. Patient presented with jaundice, and he mentioned that he had a liver transplant 19 years ago at [facility]. Patient and his could not tell if he was more jaundiced than usual. Patient has mentioned that he has uncontrolled jerking for the past 2 days. When he stands, his legs buckled under him and it is unclear if he has any loss of consciousness. Patient was exhibiting some uncontrollable jerking movements with bilateral arms. He has episodes of jerking since his liver transplant but it has become significantly worse over the past 2 days. Patient does have nausea but no vomiting. Patient does have history of gout and pain in the feet from gout. He has mentioned that he has been drinking "a lot of water and couple of power drinks" per day he has minimal urine output in the previous 2 days. Blood glucose obtained reading was "hi" on the millimeter. Patient mentioned that he quit drinking alcohol 2 weeks ago because he wasn't feeling good. He has me ntioned that he normally drinks 3 whiskeys a day. Patient's blood pressure was 148/96, pulse rate 86 respiration 22 situation 95%. The blood pressure then dropped to 96/67. Temperature 97.9. Patient's blood test shows WBC 6.4 hemoglobin 10.6 with elevated MCV 103.6 and platelets 188. Sodium 127 potassium 3.6, BUN 60, creatinine 3.02. AST 248, ALT 132 which seems to be trending slightly up. Aruna is 203, lipase 3211. UA shows 2+ bilirubin. No signs of infection. Hepatitis C antibody is positive. Patient's last hemoglobin A1c 9.7 on 12/19/2021. Ammonia 16 as of today. Acetone negative. Blood glucose 362. Patient takes Seroquel 200 mg at bedtime, omeprazole 40 mg, Lipitor 10 mg, metoprolol 100 mg twice a day, Irwin, Prograf 3 mg twice a day and allopurinol 300 mg at bedtime. Patient states that he has been drinking about 4 alcoholic drinks a day, which consist of whiskey and water. He says that he stopped drinking alcohol for 4 years after his liver transplant, but then started back again. He has done it for last 10 years. He quit drinking about 5 weeks ago. He also started smoking at age 24 years, but it grew as he got older and when he stopped smoking 4 years ago, he was smoking up to a pack a day. He does have diabetes since 2002. Patient also has history of strabismus surgery 1961. Patient also has history of hepatitis C, but states he has been treated and now it is "gone". Review of Systems As above in detail. Complains of very fatigued. Peripheral edema. Denies any double vision, loss of vision, hoarseness, sore throat, dysphagia. No abdominal pain at this time. No nausea vomiting. No chest pain, or cough. Patient is jaundiced. He has chronic liver disease. No fever or chills. All other 14 point of review of systems reviewed and unremarkable. Past Medical History Past Medical History: Diabetes Mellitus History of Any Multi-Drug Resistant Organisms: None Reported Additional Past Surgical History / Comment(s): liver transplant in 2002 Past Psychological History: No Psychological Hx Reported Smoking Status: Former smoker Past Alcohol Use History: Daily Past Drug Use History: None Reported - Past Family History Father Family Medical History: Cancer Mother Family Medical History: No Reported History Medications and Allergies Home Medications Medication Instructions Recorded Confirmed Type Allopurinol [Zyloprim] 300 mg PO HS 12/19/21 12/19/21 History Atorvastatin Calcium [Lipitor] 10 mg PO DAILY 12/19/21 12/19/21 History HYDROcodone/APAP 10-325MG [Irwin 1 tab PO QID 12/19/21 12/19/21 History 10-325] Metoprolol Tartrate [Lopressor] 100 mg PO BID 12/19/21 12/19/21 History Omeprazole 40 mg PO DAILY 12/19/21 12/19/21 History QUEtiapine [SEROquel] 200 mg PO HS 12/19/21 12/19/21 History Tacrolimus [Prograf] 3 mg PO BID 12/19/21 12/19/21 History Allergies Allergy/AdvReac Type Severity Reaction Status Date / Time No Known Allergies Allergy Verified 12/19/21 20:48 Physical Examination - Vital Signs Vital Signs: Vital Signs Temp Pulse Resp BP Pulse Ox 12/20/21 10:22 77 18 137/87 95 12/20/21 07:47 82 18 148/69 96 12/20/21 06:15 82 18 141/70 96 12/20/21 03:50 78 18 116/82 96 12/20/21 01:25 77 18 107/61 96 12/20/21 00:05 76 18 101/79 97 12/19/21 23:12 78 18 97/69 96 12/19/21 22:30 76 18 95/59 96 12/19/21 21:33 97.9 F 76 18 114/72 97 12/19/21 19:40 76 18 138/73 98 12/19/21 18:00 97.7 F 82 22 122/72 95 Patient is a late middle aged male, appears older than his stated age. He is obviously icteric. Patient is alert awake oriented to time place and person. He knows it is December and the year is 2021 and that is in [place] in [facility]. He knows his age and name of the current president. Speech and language functions are normal. Attention span, concentration is obviously decreased and fund of knowledge is adequate. On cranial nerve examination, pupils are round and reacting to light, visual nguyen are full on confrontation, extraocular muscles are intact with no nystagmus. Face is symmetric, tongue protrudes to the midline. Palatal elevation and sensation normal, hearing and shoulder shrug normal, facial sensa tion normal. Shoulder shrug normal. On muscle strength testing, there is no pronator drift and the strength is normal in arms distally and proximally. In the lower extremities, patient's ankles are normal. Hip flexion is 3+ bilaterally. Deep tendon reflexes are trace in the upper limbs, 0 in the lower limbs and plantars are downgoing bilaterally. Patient has gout and it is very painful touching the feet. Sensory to touch is equal with no neglect. Cerebellar function showed no ataxia for [id number] testing. Cannot perform [id number] testing. Tone is mildly increased and bulk of muscles normal. Patient does have some myoclonic jerks noticeable of the upper extremities with some asterixis. Gait not checked. On general examination, there is no carotid bruit or murmur, S1-S2 audible. Abdomen is soft nontender. Chest is clear. Patient has peripheral edema. Results - Laboratory Findings CBC and BMP: 12/20/21 05:20 12/20/21 11:45 Abnormal Lab Findings: Abnormal Labs 12/19/21 12/19/21 12/19/21 18:10 18:20 18:20 RBC 3.29 L Hgb 11.3 L Hct 34.8 L MCV 105.8 H Lymphocytes # 0.7 L PT 13.0 H INR 1.2 H Sodium Potassium Chloride Carbon Dioxide BUN Creatinine Glucose POC Glucose (mg/dL) >600 H Hemoglobin A1c Calcium Total Bilirubin AST ALT Alkaline Phosphatase Total Protein Albumin Amylase Lipase Urine Protein Urine Glucose (UA) Urine Ketones Urine Bilirubin Urine Bacteria Urine Mucus Hep C IgG Ab 12/19/21 12/19/21 12/19/21 18:20 19:39 20:29 RBC Hgb Hct MCV Lymphocytes # PT INR Sodium 120 L Potassium Chloride 85 L Carbon Dioxide 18 L BUN 64 H Creatinine 3.33 H Glucose 693 H* POC Glucose (mg/dL) 570 H Hemoglobin A1c 9.7 H Calcium Total Bilirubin 20.4 H* AST 304 H ALT 176 H Alkaline Phosphatase 1704 H Total Protein Albumin Amylase 163 H Lipase 2485 H Urine Protein Urine Glucose (UA) Urine Ketones Urine Bilirubin Urine Bacteria Urine Mucus Hep C IgG Ab 12/19/21 12/19/21 12/20/21 21:52 21:52 03:05 RBC Hgb Hct MCV Lymphocytes # PT INR Sodium 127 L Potassium Chloride 96 L Carbon Dioxide 16 L BUN 60 H Creatinine 3.02 H Glucose 419 H POC Glucose (mg/dL) Hemoglobin A1c Calcium 8.3 L Total Bilirubin 17.4 H* AST 248 H ALT 132 H Alkaline Phosphatase 1362 H Total Protein 5.8 L Albumin 2.7 L Amylase Lipase Urine Protein Trace H Urine Glucose (UA) 4+ H Urine Ketones Trace H Urine Bilirubin 2+ H Urine Bacteria Rare H Urine Mucus Rare H Hep C IgG Ab Reactive A 12/20/21 12/20/21 12/20/21 05:20 05:20 08:48 RBC 3.12 L Hgb 10.6 L Hct 32.4 L MCV 103.6 H Lymphocytes # 0.7 L PT INR Sodium 129 L 134 L Potassium 3.2 L Chloride 97 L 114 H Carbon Dioxide 17 L 12 L BUN 57 H 40 H Creatinine 2.79 H 1.73 H Glucose 379 H 284 H POC Glucose (mg/dL) Hemoglobin A1c Calcium 8.2 L 5.6 L* Total Bilirubin 17.7 H* 12.3 H AST 252 H 159 H ALT 142 H 96 H Alkaline Phosphatase 1310 H 849 H Total Protein 5.8 L 4.2 L Albumin 2.7 L 1.8 L Amylase Lipase Urine Protein Urine Glucose (UA) Urine Ketones Urine Bilirubin Urine Bacteria Urine Mucus Hep C IgG Ab 12/20/21 11:45 RBC Hgb Hct MCV Lymphocytes # PT INR Sodium 129 L Potassium Chloride Carbon Dioxide 16 L BUN 54 H Creatinine 2.54 H Glucose 362 H POC Glucose (mg/dL) Hemoglobin A1c Calcium Total Bilirubin 17.6 H* AST 255 H ALT 144 H Alkaline Phosphatase 1355 H Total Protein 6.1 L Albumin 2.8 L Amylase 203 H Lipase 3211 H Urine Protein Urine Glucose (UA) Urine Ketones Urine Bilirubin Urine Bacteria Urine Mucus Hep C IgG Ab Assessment and Plan Assessment: * Frequent falls, jerking of upper extremities, likely due to myoclonic jerks. Patient has asterixis noticeable. Etiology multifactorial, most likely related to acute metabolic encephalopathy, due to decompensated liver disease, acute renal insufficiency and electrolyte imbalance, and other reasons mentioned below. * Delirium likely due to metabolic encephalopathy, multifactorial. * Bilateral lower extremity weakness, likely due to peripheral neuropathy. Causes multifactorial as mentioned above and below. Rule out nutritional causes. * Diabetes, not well controlled * Jaundice, due to advanced liver disease * Macrocytic anemia due to alcoholism and chronic liver disease * Acute pancreatitis * History of liver transplant in 2002, currently on tacrolimus * Gouty arthritis, possible flareup. * Alcohol abuse * X tobacco use Plan: * Regarding possible peripheral neuropathy, the will check B12, folate, thiamine, B6, methylmalonic acid and RPR. We will also check TSH. CPK is normal 86 and ammonia 16. * Patient's peripheral neuropathy is likely toxic from above conditions rule out nutritional causes. Patient's hemoglobin A1c is 9.7, indicating poorly controlled diabetes. Optimize control of diabetes to target A1c < 7.0. Avoid hypoglycemia. * Patient's myoclonic jerks. Improve, once his medical conditions comes under control. * Treatment of all other medical conditions as per IM and other specialties. * Patient counseled about complete abstinence from alcohol and tobacco use. * PT OT for strengthening exercises. * We will follow clinically. * Thank you for the consult. Time with Patient: Greater than 30
[2021-12-21 00:09] VITALS: BP 144/68; PULSE 92; TEMP 98.4
--- NOTE | 2021-12-21 08:28 | P.DS ---
Providers Date of admission: 12/20/21 11:24 Attending physician: Bhanu Eddy MD Consults: 12/20/21 11:19 Consult Physician Urgent Consulting Provider: Cheryle Palm Consult Reason/Comments: kitty , on immunosuppressive therapy Do you want consulting provider notified?: Yes 12/20/21 13:15 Consult Physician Urgent Consulting Provider: Michelle Resendez Consult Reason/Comments: b/l leg weakness and numbness Do you want consulting provider notified?: Yes [facility] Course: Altered mental status, most likely delirium secondary to metabolic/toxic encephalopathy. Currently patient awake and alert Acute kidney injury Hyponatremia Elevated liver enzymes and bilirubin, Dilated intrahepatic and extrahepatic bile ducts, pending transfer to [facility] Acute pancreatitis Bilateral knee pain Left knee osteoarthritis with effusion, patient to be transferred to [facility] Ongoing bilateral leg weakness for 3-6 months Bilateral knee pain Liver transplant 2002 on tacrolimus Diabetes mellitus, with hyperglycemia. new onset alcohol abuse Hospital course: it looks like the patient was transferred overnight to [facility] as he is planned to prior to admission to inpatient status and from the emergency room. Please refer to H&P from yesterday for more details Patient is transferred in stable condition with guarded prognosis. Plan - Discharge Summary Discharge Rx Participant: No New Discharge Prescriptions: No Action QUEtiapine [SEROquel] 200 mg PO HS Omeprazole 40 mg PO DAILY Atorvastatin Calcium [Lipitor] 10 mg PO DAILY Metoprolol Tartrate [Lopressor] 100 mg PO BID HYDROcodone/APAP 10-325MG [Morris 10-325] 1 tab PO QID Tacrolimus [Prograf] 3 mg PO BID Allopurinol [Zyloprim] 300 mg PO HS Discharge Medication List Allopurinol [Zyloprim] 300 mg PO HS 12/19/21 [History] Atorvastatin Calcium [Lipitor] 10 mg PO DAILY 12/19/21 [History] HYDROcodone/APAP 10-325MG [Morris 10-325] 1 tab PO QID 12/19/21 [History] Metoprolol Tartrate [Lopressor] 100 mg PO BID 12/19/21 [History] Omeprazole 40 mg PO DAILY 12/19/21 [History] QUEtiapine [SEROquel] 200 mg PO HS 12/19/21 [History] Tacrolimus [Prograf] 3 mg PO BID 12/19/21 [History] Follow up Appointment(s)/Referral(s): Wali Hart MD [Primary Care Provider] - 1-2 days Discharge Disposition: OTHER INSTITUTION NOT DEFINED
[2021-12-21] MEDS ORDERED: PANTOPRAZOLE 40 MG/10 ML VIAL IV SCH (09:00)
== END 2021-12-21 03:01 | disposition other institution (70) | DRG 441 ==
LOC: EC 17:57 → 3SCARD 12-20 11:24
PROVIDERS: ADMIT Internal Medicine; ATTEND Internal Medicine
DX: K72.00 Acute and subacute hepatic failure without coma (principal); G92.8 Other toxic encephalopathy; K85.90 Acute pancreatitis without necrosis or infection, unspecified; N17.9 Acute kidney failure, unspecified; F05 Delirium due to known physiological condition; E87.1 Hypo-osmolality and hyponatremia; J98.11 Atelectasis; Z94.4 Liver transplant status; R62.7 Adult failure to thrive; R41.82 Altered mental status, unspecified; F10.20 Alcohol dependence, uncomplicated; Z87.891 Personal history of nicotine dependence; D53.9 Nutritional anemia, unspecified; D63.8 Anemia in other chronic diseases classified elsewhere; E11.65 Type 2 diabetes mellitus with hyperglycemia; E86.0 Dehydration; G25.3 Myoclonus; G62.9 Polyneuropathy, unspecified; E11.42 Type 2 diabetes mellitus with diabetic polyneuropathy; M10.9 Gout, unspecified; M17.12 Unilateral primary osteoarthritis, left knee; R29.6 Repeated falls; W19.XXXA Unspecified fall, initial encounter; Y92.239 Unspecified place in hospital as the place of occurrence of the external cause; Z79.899 Other long term (current) drug therapy; Z20.822 Contact with and (suspected) exposure to COVID-19
CPT/HCPCS: 36415; 51798; 71046; 74018; 76705; 76770; 80053; 80074; 81001; 82009; 82140; 82150; 82330; 82550; 83036; 83605; 83690; 83735; 84484; 85025; 85610; 85730; 87635; 96361; 96365; 96366; 96375; 96376; 99291